=== PATIENT | female | born 1935 | race Two or more races ===

== ENCOUNTER 2024-01-31 14:23 | Emergency (ER) | payer OTHER ==
[~2024-01-31] VITALS: Ht 157.5 cm; Wt 45.4 kg
[~2024-01-31 14:23] MED LIST: ALTACE1.25 MG PO; FAMCICLOVIR500 MG PO; GABAPENTIN100 M2 PO; NORVASC2.5 M1 PO; PERSANTINE50 MG; PREVACID15 M1 PO
[2024-01-31] MEDS ORDERED: GABAPENTIN 250 MG/5 ML ML PO STA (15:50)
[2024-01-31] MEDS ORDERED: DEXAMETHASONE SODIUM PHOSPHATE 4 MG/ML VIAL IM STA (15:50)
[2024-01-31] MEDS ORDERED: ORPHENADRINE CITRATE 30 MG/ML AMPUL IM STA (15:51)
[2024-01-31] MEDS ORDERED: NEURONTIN600 M1 PO (15:56)
== END 2024-01-31 16:25 | disposition home or self-care (01) ==
LOC: ER 14:25
DX: G62.9 Polyneuropathy, unspecified (principal); Z88.5 Allergy status to narcotic agent; Z88.6 Allergy status to analgesic agent